=== PATIENT | female | born 1960 | race Caucasian/White ===

== ENCOUNTER 2020-08-08 15:16 | Outpatient (CLI) | payer OTHER ==
--- NOTE | 2020-08-08 16:59 | XRAY Report ---
PROCEDURE: Foot 3 View RT INDICATIONS: UNSPECIFIED SPRAIN OF R FOOT TECHNIQUE: 3 views of the foot were acquired. COMPARISON: None FINDINGS: Bones: No fractures or dislocations. No suspicious bony lesions. Soft tissues: No tibiotalar joint effusion. Achilles tendon appears normal. IMPRESSION: No visualized acute fracture or dislocation. However, occult injury cannot be excluded. Recommend sandra rt interval imaging follow-up in 7-10 days as clinically indicated for additional evaluation. Reviewed by: Leanne Zepeda MD on 08/08/2020 4:58 PM PDT Approved by: Leanne Zepeda MD on 08/08/2020 4:58 PM PDT Station ID: [id number]
== END 2020-08-08 23:59 | disposition home or self-care (01) ==
LOC: DI.N 15:16
PROVIDERS: ATTEND Physician Assistant Medical
DX: S93.601A Unspecified sprain of right foot, initial encounter (principal)

== ENCOUNTER 2020-12-13 13:58 | Outpatient (CLI) | payer OTHER ==
--- NOTE | 2020-12-14 13:27 | Mammography Report ---
BILATERAL DIGITAL SCREENING MAMMOGRAM 3D/2D: 12/13/2020 CLINICAL: Routine screening. Comparison is made to exams dated: 01/04/2011 mammogram and 07/15/2009 mammogram - [facility]. There are scattered fibroglandular elements in both breasts. No significant masses, calcifications, or other findings are seen in either breast. There has been no significant interval change. IMPRESSION: NEGATIVE There is no mammographic evidence of malignancy. A 1 year screening mammogram is recommended. This exam was interpreted at Station ID: [id number]. NOTE: For mammograms, a report in lay terms will be sent to the patient. Approximately 15% of breast malignancies will not be visualized mammographically. In the management of a palpable breast mass, a negative mammogram must not discourage biopsy of a clinically suspicious lesion. Electronically Signed By: Kale Birch M.D., jr/rocio:12/13/2020 16:25:34 ACR BI-RADS Category 1: Negative 3341F PARENCHYMAL PATTERN: (A) - The breast(s) demonstrate(s) scattered fibroglandular densities. BI-RADS CATEGORY: (1) - 1 RECOMMENDATION: (ANNUAL) - Recommend routine annual screening mammography. [id number] 1 year screening LATERALITY: (B)
== END 2020-12-13 13:59 | disposition home or self-care (01) ==
LOC: DI 13:58
PROVIDERS: ATTEND Registered Nurse
DX: Z12.31 Encounter for screening mammogram for malignant neoplasm of breast (principal)

== ENCOUNTER 2020-12-13 14:01 | Outpatient (CLI) | payer OTHER ==
--- NOTE | 2020-12-13 15:50 | DEXA Report ---
PROCEDURE: Dexa Spine and/or Hip INDICATIONS: POST MENOPAUSAL TECHNIQUE: Dual energy x-ray absorptiometry (DXA) was performed on a [employer] System. Regions measur ed are the AP Spine, femoral neck, and if needed forearm. COMPARISON: None. FINDINGS: Lumbar Spine: Bone Mineral Density 1.329 g/cm/cm,T score 1.2, normal Left Hip: Bone Mineral Density 1.174 g/cm/cm,T score 1.3, normal Left Femoral Neck: Bone Mineral Density 1.125 g/cm/cm, T score 0.6, normal (T score greater or equal to -1.0: NORMAL) (T score from -1.1 to -2.4: OSTEOPENIA) (T score less than or equal to -2.5 to: OSTEOPOROSIS) Impression: Normal bone mineral density. Patients with diagnosis of osteoporosis or osteopenia should have regular bone mineral density assess ment. For those eligible for Medicare, routine testing is allowed once every 2 years. Testing frequ ency can be increased for patients who have rapidly progressing disease or for those who are receivin g medical therapy to restore bone mass. Reviewed by: Leanne Zepeda MD on 12/13/2020 3:49 PM PDT Approved by: Leanne Zepeda MD on 12/13/2020 3:49 PM PDT Station ID: [id number]
== END 2020-12-13 14:02 | disposition home or self-care (01) ==
LOC: DI 14:01
PROVIDERS: ATTEND Registered Nurse
DX: Z78.0 Asymptomatic menopausal state (principal)